=== PATIENT | male | born 1955 | race Caucasian/White ===

== ENCOUNTER 2016-09-19 06:37 | Emergency (ER) | payer BC ==
--- NOTE | 2016-09-19 07:52 | ER Document Report ---
ED GI/ - General Mode of Arrival: Ambulatory Information source: Patient TRAVEL OUTSIDE OF THE [place] IN LAST 30 DAYS: No - HPI Patient complains to provider of: Abdominal pain - RLQ, Flank pain - right. No : Testicular pain Onset: Other - last night Location: RLQ, Right flank Associated symptoms: Other - see above <BANDAR SEPULVEDA - Last Filed: 09/19/16 07:52> <KATHERINE MARTINEZ - Last Filed: 09/19/16 11:50> - General Chief Complaint: Lower Abdominal Pain Stated Complaint: FLANK PAIN Notes: 61 year old male with history of kidney stones and right partial nephrectomy secondary to kidney cancer (10-11 years ago) presents to the ED complaining of RLQ abdominal pain that radiates to the right flank which started last night at 2100. Patient reports that it "felt like glass" to his RLQ, and denies any associated testicular pain. Patient denies nausea during symptom onset, but states that he did have some nausea later. Patient denies vomiting, diarrhea, hematuria, or dysuria. Patient has had a cardiac catheterization performed followed by a negative nuclear stress test. (BANDAR SEPULVEDA) - Related Data Allergies/Adverse Reactions: amoxicillin trihydrate [From Augmentin] Allergy (Mild, Verified 09/19/16 06:48) itchy Potassium Clavulanate * [From Augmentin] Allergy (Mild, Verified 09/19/16 06:48) itchy cholesterol medications Allergy (Mild, Uncoded 08/16/13 16:07) joint pain cillins Allergy (Mild, Uncoded 08/16/13 16:07) rash Past Medical History - General Information source: Patient - Social History Smoking Status: Former Smoker Chew tobacco use (# tins/day): No Frequency of alcohol use: None Drug Abuse: None Family History: Reviewed & Not Pertinent Patient has suicidal ideation: No Patient has homicidal ideation: No - Past Medical History Cardiac Medical History: Reports: Hx Coronary Artery Disease - angina, plaque in arteries, Hx Hypertension Renal/ Medical History: Denies: Hx Peritoneal Dialysis Malignancy Medical History: Reports Hx Renal (Kidney) Cancer - right ([id number]) Musculoskeltal Medical History: Reports Hx Arthritis - ?knee Past Surgical History: Reports: Hx Cholecystectomy, Hx Kidney (Renal Surgery) - partial right nephrectomy. Denies: Hx Pacemaker - Immunizations Hx Diphtheria, Pertussis, Tetanus Vaccination: Yes <BANDAR SEPULVEDA - Last Filed: 09/19/16 07:52> Review of Systems - Review of Systems Constitutional: No symptoms reported EENT: No symptoms reported Cardiovascular: No symptoms reported Respiratory: No symptoms reported Gastrointestinal: See HPI, Abdominal pain - RLQ, Nausea. denies: Diarrhea, Vomiting Genitourinary: See HPI, Flank pain - right. denies: Dysuria, Hematuria Male Genitourinary: No symptoms reported. denies: Testicular pain Musculoskeletal: No symptoms reported Skin: No symptoms reported Hematologic/Lymphatic: No symptoms reported Neurological/Psychological: No symptoms reported -: Yes All other systems reviewed and negative <SEPULVEDABANDAR MONTERO - Last Filed: 09/19/16 07:52> Physical Exam - General General appearance: Alert In distress: None - HEENT Head: Normocephalic, Atraumatic Eyes: Normal Extraocular movements intact: Yes Pupils: PERRL - Respiratory Respiratory status: No respiratory distress Breath sounds: Normal - Cardiovascular Rhythm: Regular Heart sounds: Normal auscultation - Abdominal Inspection: Normal Distension: No distension Bowel sounds: Normal Tenderness: Tender - RLQ tenderness to palpation - Back Back: CVA tenderness - Right CVA tenderness to percussion that does not radiate to testicles.. No: Normal - Extremities General upper extremity: Normal inspection, Normal ROM General lower extremity: Normal inspection, Normal ROM - Neurological Neuro grossly intact: Yes - Psychological Associated symptoms: Normal affect, Normal mood - Skin Skin Temperature: Warm Skin Moisture: Dry Skin Color: Normal <SEPULVEDABANDAR - Last Filed: 09/19/16 07:52> <KATHERINE MARTINEZ - Last Filed: 09/19/16 11:50> - Vital signs Vitals: Temp Pulse Resp BP Pulse Ox 97.5 F 65 16 140/85 H 96 09/19/16 06:41 09/19/16 06:41 09/19/16 06:41 09/19/16 06:41 09/19/16 06:41 Course <SEPULVEDABANDAR - Last Filed: 09/19/16 07:52> - Laboratory Result Diagrams: 09/19/16 10:42 09/19/16 10:42 <KATHERINE MARTINEZ - Last Filed: 03/09/17 11:50> - Re-evaluation Re-evalutation: 09/19/16 11:48 Urine has no blood. White blood cell count is low without shift. CT scan does not show ureteral stones or hydroureter or hydronephrosis. It does not show inflammation in the right lower quadrant. (KATHERINE MARTINEZ) - Vital Signs Vital signs: Temp Pulse Resp BP Pulse Ox 97.5 F 65 16 140/85 H 96 09/19/16 06:41 09/19/16 06:41 09/19/16 06:41 09/19/16 06:41 09/19/16 06:41 - Laboratory Laboratory results interpreted by me: 09/19/16 10:42 ALT 76 H Discharge <BANDAR SEPULVEDA - Last Filed: 09/19/16 07:52> <KATHERINE MARTINEZ - Last Filed: 09/19/16 11:50> - Discharge Clinical Impression: Flank pain Abdominal pain Qualifiers: Abdominal location: right lower quadrant Qualified Code(s): R10.31 - Right lower quadrant pain Condition: Stable Disposition: HOME, SELF-CARE Additional Instructions: Flank Pain: We weren't able to prove an exact cause for your flank pain. Pain in the flank can be caused by a muscle strain or spasm. Sometimes a kidney stone causes pain, but can't be found on our tests. Infection in the kidney should be evident on a urine test. Early shingles can occasionally cause flank pain, without the rash that proves the diagnosis. On rare occasions, disease of the pancreas, aorta, spleen, or colon can create pain in the flank. At this time, there's no evidence of a dangerous condition, and it seems safe for you to be at home. If the pain goes away and does not come back, no further testing will be needed. If pain persists, or becomes more severe, we may need to repeat some tests or order additional new testing. Blood in the urine, urgency to urinate frequently, and pain that radiates to the groin can indicate a kidney stone. Fever may mean that the pain is due to infection, either of the kidney or the colon (diverticulitis). If your pain is early shingles, you should develop an eruption of blisters in the painful area within a few days. Call the doctor or return if you have pain that is spreading or becoming more severe, pain that does not resolve with time, fever, or any other new symptoms. Referrals: ADRIANNE MELVIN FNP [Primary Care Provider] - Follow up as needed Scribe Attestation: 09/19/16 11:50 I personally performed the services described in the documentation, reviewed and edited the documentation which was dictated to the scribe in my presence, and it accurately records my words and actions. (KATHERINE MARTINEZ) Scribe Documentation - Scribe Written by Otf:: Otf Corea, [id number] acting as scribe for :: Alex <BANDAR SEPULVEDA - Last Filed: 09/19/16 07:52>
[2016-09-19 08:46] LABS: APPEARANCE,URINE CLEAR; BILIRUBIN,URINE NEGATIVE (NEGATIVE); GLUCOSE, URINE NEGATIVE (NEGATIVE); KETONES,URINE NEGATIVE (NEGATIVE); LEUKOCYTE ESTERASE,URINE NEGATIVE (NEGATIVE); NITRITE,URINE NEGATIVE (NEGATIVE); PROTEIN,URINE NEGATIVE (NEGATIVE); URINE SPECIFIC GRAVITY 1.004; UROBILINOGEN,URINE NEGATIVE mg/dL (<2.0)
[2016-09-19 10:56] LABS: ABSOLUTE EOSINOPHILS # (AUTO) 0.1 10^3/uL (0.0-0.6); ABSOLUTE LYMPHOCYTES (AUTO) 2.2 10^3/uL (0.5-4.7); ABSOLUTE MONOCYTES (AUTO) 0.6 10^3/uL (0.1-1.4); ABSOLUTE NEUT (AUTO) 3.4 10^3/uL (1.7-8.2); BASOPHILS % (AUTO) 0.7 % (0-2); EOSINOPHILS % (AUTO) 1.7 % (0-6); HEMATOCRIT 43.6 % (37.9-51.0); HEMOGLOBIN 15.2 g/dL (13.5-17.0); LYMPHOCYTES % (AUTO) 34.1 % (13-45); MEAN CORPUSCULAR HEMOGLOBIN 32.5 pg (27.0-33.4); MEAN CORPUSCULAR VOLUME 93 fl (80-97); MONOCYTES % (AUTO) 9.9 % (3-13); RED BLOOD COUNT 4.69 10^6/uL (4.35-5.55); RED CELL DISTRIBUTION WIDTH 12.9 % (11.5-14.0); SEGMENTED NEUTROPHILS % (AUTO) 53.6 % (42-78); WHITE BLOOD COUNT 6.3 10^3/uL (4.0-10.5)
[2016-09-19 11:11] LABS: ALANINE AMINOTRANSFERASE 76 U/L (21-72); ALBUMIN 4.4 g/dL (3.5-5.0); ALKALINE PHOSPHATASE 73 U/L (38-126); ANION GAP 13 (5-19); ASPARTATE AMINO TRANSFERASE 47 U/L (17-59); BILIRUBIN,TOTAL 1.1 mg/dL (0.2-1.3); BLOOD UREA NITROGEN 15 mg/dL (7-20); CALCIUM 9.8 mg/dL (8.4-10.2); CARBON DIOXIDE 25 mmol/L (22-30); CHLORIDE 103 mmol/L (98-107); CREATININE RESULT 0.87 mg/dL (0.52-1.25); GLUCOSE 108 mg/dL (75-110); POTASSIUM 4.5 mmol/L (3.6-5.0); SODIUM 140.7 mmol/L (137-145); TOTAL PROTEIN 7.4 g/dL (6.3-8.2)
[2016-09-19 11:24] LABS: C-REACTIVE PROTEIN 5.5 mg/L (<10.0)
[2016-09-19 12:15] VITALS: BP 144/88
== END 2016-09-19 12:11 | disposition home or self-care (01) ==
LOC: ER 06:37
DX: R10.31 Right lower quadrant pain (principal); R11.0 Nausea; Z87.891 Personal history of nicotine dependence
CPT/HCPCS: 36415; 76380; 80053; 81001; 85025; 86140; 99284

== ENCOUNTER 2017-06-14 22:15 | Emergency (ER) | payer BC ==
[2017-06-14] MEDS ORDERED: ASPIRIN 81 MG TABLET, CHEWABLE PO ONE (23:45)
--- NOTE | 2017-06-15 00:27 | RADIOLOGY REPORT (SQ) ---
EXAM DESCRIPTION: CHEST SINGLE VIEW COMPLETED DATE/TIME: 06/15/2017 12:16 am REASON FOR STUDY: chest pain COMPARISON: 2.3.14 EXAM PARAMETERS: NUMBER OF VIEWS: One view. TECHNIQUE: Single frontal radiographic view of the chest acquired. RADIATION DOSE: NA LIMITATIONS: None. FINDINGS: LUNGS AND PLEURA: No opacities, masses or pneumothorax. No pleural effusion. MEDIASTINUM AND HILAR STRUCTURES: No masses. Contour normal. HEART AND VASCULAR STRUCTURES: Heart normal in size. Normal vasculature. BONES: No acute findings. HARDWARE: None in the chest. OTHER: No other significant finding. IMPRESSION: NO ACUTE RADIOGRAPHIC FINDING IN THE CHEST. TECHNICAL DOCUMENTATION: JOB ID: [id number] [facility]- All Rights Reserved
--- NOTE | 2017-06-15 01:01 | ER Document Report ---
ED Cardiac - General Chief Complaint: Chest Pain Stated Complaint: CHEST PAIN Time Seen by Provider: 06/15/17 00:42 Notes: Patient is a 61-year-old male that comes emergency department for chief complaint of pain in his chest, he states that at about 2130 he got up and started to walk and he felt a pain and a grabbing sensation over his left chest , he states that he sat down, took one sublingual nitroglycerin, pain subsided. He states it returned the same way again a little bit later. He denies current chest pain. He denies shortness of breath, nausea or vomiting. He does have some discomfort with palpation over his left chest, he states he thinks this may be muscular soreness but he wants to be checked out. 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 He does not smoke, only other past medical history reported is hypertension for which he is medicated. TRAVEL OUTSIDE OF THE [place] IN LAST 30 DAYS: No - Related Data Allergies/Adverse Reactions: amoxicillin trihydrate [From Augmentin] Allergy (Mild, Verified 09/19/16 06:48) itchy Potassium Clavulanate * [From Augmentin] Allergy (Mild, Verified 09/19/16 06:48) itchy cholesterol medications Allergy (Mild, Uncoded 08/16/13 16:07) joint pain cillins Allergy (Mild, Uncoded 08/16/13 16:07) rash Past Medical History - General Information source: Patient - Social History Smoking Status: Never Smoker Frequency of alcohol use: None Drug Abuse: None Lives with: Family Family History: Reviewed & Not Pertinent - Past Medical History Cardiac Medical History: Reports: Hx Coronary Artery Disease - angina, plaque in arteries, Hx Hypertension Denies: Hx Heart Attack Pulmonary Medical History: Denies: Hx Asthma, Hx Bronchitis, Hx COPD, Hx Pneumonia, Hx Tuberculosis Neurological Medical History: Denies: Hx Cerebrovascular Accident, Hx Seizures Renal/ Medical History: Denies: Hx Peritoneal Dialysis Malignancy Medical History: Reports Hx Renal (Kidney) Cancer - right ([id number]) Musculoskeltal Medical History: Reports Hx Arthritis - ?knee Past Surgical History: Reports: Hx Cholecystectomy, Hx Kidney (Renal Surgery) - partial right nephrectomy. Denies: Hx Pacemaker - Immunizations Hx Diphtheria, Pertussis, Tetanus Vaccination: Yes Review of Systems - Review of Systems Constitutional: No symptoms reported EENT: No symptoms reported Cardiovascular: See HPI Respiratory: No symptoms reported Gastrointestinal: No symptoms reported Genitourinary: No symptoms reported Male Genitourinary: No symptoms reported Musculoskeletal: See HPI Skin: No symptoms reported Hematologic/Lymphatic: No symptoms reported Neurological/Psychological: No symptoms reported Physical Exam - Vital signs Vitals: Temp Pulse Resp BP Pulse Ox 98.1 F 68 18 146/88 H 95 06/14/17 22:26 06/14/17 22:26 06/14/17 22:26 06/14/17 22:26 06/14/17 22:26 Interpretation: Normal - General General appearance: Appears well, Alert In distress: None - HEENT Head: Normocephalic, Atraumatic Eyes: Normal Pupils: PERRL - Respiratory Respiratory status: No respiratory distress Chest status: Tender - Reproducible tenderness over the lateral aspect of the left pectoral musculature, worse with range of motion, no swelling, induration, fluctuance of the area. Unremarkable exam otherwise. Breath sounds: Normal. No: Decreased air movement, Wheezing Chest palpation: Normal - Cardiovascular Rhythm: Regular. No: Tachycardia Heart sounds: Normal auscultation, S1 appreciated, S2 appreciated Murmur: No - Abdominal Inspection: Normal Distension: No distension Bowel sounds: Normal Tenderness: Nontender Organomegaly: No organomegaly - Back Back: Normal, Nontender. 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 No significant change from prior. Chest x-ray unremarkable. CBC, chemistry unremarkable other than very mildly elevated LFTs, patient states she has had this previously, patient states he is on a diet and is being followed for this by his primary provider. Initial troponin is negative. Patient is asking to leave. 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 I explained to patient that because of the onset of his symptoms we have still not ruled out NSTEMI. Patient agreed to stay for second troponin. This was cycled and was negative. Discussed potential admission for telemetry observation. Patient is asking to leave. His heart score is 2. He states that he will follow-up within 2 days with his primary provider and he will be also evaluated by cardiology afterwards. Discharged with return precautions. - Vital Signs Vital signs: Temp Pulse Resp BP Pulse Ox 98.1 F 68 20 152/98 H 96 06/14/17 22:26 06/14/17 22:26 06/15/17 05:00 06/15/17 05:20 06/15/17 05:20 - Laboratory Result Diagrams: 06/15/17 00:50 06/15/17 00:50 Laboratory results interpreted by me: 06/15/17 06/15/17 00:50 00:50 MCH 33.8 H Glucose 117 H AST 62 H ALT 86 H Discharge - Discharge Clinical Impression: Chest pain Qualifiers: Chest pain type: unspecified Qualified Code(s): R07.9 - Chest pain, unspecified Condition: Stable Disposition: HOME, SELF-CARE Additional Instructions: Your workup today did not show any acute or concerning abnormalities. This does appear to be chest wall, however please call tomorrow to set up close follow-up with your primary care provider and with cardiology. Apply heat to the area, consider [id number] anti-inflammatories, return immediately if you worsen in anyway including increased pain, difficulty breathing, vomiting, or any other concerning symptoms. Referrals: ADRIANNE MELVIN FNP [Primary Care Provider] - Follow up as needed
[2017-06-15 01:07] LABS: ABSOLUTE LYMPHOCYTES (AUTO) 1.4 10^3/uL (0.5-4.7); ABSOLUTE MONOCYTES (AUTO) 0.5 10^3/uL (0.1-1.4); ABSOLUTE NEUT (AUTO) 4.6 10^3/uL (1.7-8.2); BASOPHILS % (AUTO) 0.5 % (0-2); EOSINOPHILS % (AUTO) 0.7 % (0-6); HEMOGLOBIN 15.8 g/dL (13.5-17.0); HGB HCT DIFFERENCE 3.4; LYMPHOCYTES % (AUTO) 21.1 % (13-45); MEAN CORPUSCULAR HEMOGLOBIN 33.8 pg (27.0-33.4); MEAN CORPUSCULAR HGB CONC 35.8 g/dL (32.0-36.0); MEAN CORPUSCULAR VOLUME 95 fl (80-97); MONOCYTES % (AUTO) 7.5 % (3-13); RED BLOOD COUNT 4.66 10^6/uL (4.35-5.55); RED CELL DISTRIBUTION WIDTH 12.6 % (11.5-14.0); SEGMENTED NEUTROPHILS % (AUTO) 70.2 % (42-78); WHITE BLOOD COUNT 6.5 10^3/uL (4.0-10.5)
[2017-06-15 01:28] LABS: CHLORIDE 107 mmol/L (98-107); CREATINE KINASE 140 U/L (55-170)
[2017-06-15 01:45] LABS: CALCIUM 9.4 mg/dL (8.4-10.2)
[2017-06-15 01:46] LABS: ANION GAP 13 (5-19); BLOOD UREA NITROGEN 16 mg/dL (7-20); CARBON DIOXIDE 23 mmol/L (22-30); GLUCOSE 117 mg/dL (75-110); POTASSIUM 4.7 mmol/L (3.6-5.0); SODIUM 143.3 mmol/L (137-145)
[2017-06-15 01:47] LABS: ALANINE AMINOTRANSFERASE 86 U/L (21-72); ALBUMIN 4.7 g/dL (3.5-5.0); ALKALINE PHOSPHATASE 72 U/L (38-126); ASPARTATE AMINO TRANSFERASE 62 U/L (17-59); BILIRUBIN,TOTAL 0.7 mg/dL (0.2-1.3); CREATININE RESULT 0.88 mg/dL (0.52-1.25)
[2017-06-15 01:48] LABS: BILIRUBIN,DIRECT 0.4 mg/dL (0.0-0.4); TOTAL PROTEIN 7.9 g/dL (6.3-8.2)
[2017-06-15 05:37] VITALS: BP 152/98
--- NOTE | 2017-06-15 10:01 | EKG REPORT ---
SEVERITY:- BORDERLINE ECG - SINUS RHYTHM LVH BY VOLTAGE EARLY TRANSITION. : Confirmed by: Augie Unger MD 15-Jun-2017 10:01:16
== END 2017-06-15 05:38 | disposition home or self-care (01) ==
LOC: ER 22:15
DX: R07.9 Chest pain, unspecified (principal); R79.89 Other specified abnormal findings of blood chemistry; I10 Essential (primary) hypertension; Z79.899 Other long term (current) drug therapy; Z88.0 Allergy status to penicillin; Z88.8 Allergy status to other drugs, medicaments and biological substances; Z90.5 Acquired absence of kidney
CPT/HCPCS: 36415; 71010; 80053; 82550; 84484; 85025; 93005; 93010; 99285